=== PATIENT | female | born 1980 | race Two or more races ===

== ENCOUNTER → 2024-02-18 | Outpatient (CLI) | payer BC ==
[~2024-02-18] VITALS: Ht 165.1 cm; Wt 81.6 kg
[2024-02-18] MEDS: REGADENOSON 0.4 MG/5 ML SYRG IV ONE ×2 (12:42→13:14)
--- NOTE | 2024-02-18 17:18 | DVHSR ---
APPROVED REPORT Exam: Nuclear Stress Test BMI: 0 Stress Test Details HR Max Heart Rate (APMHR): 177.677101 bpm Target HR (85% APMHR): 150.623314 bpm BP ECG Stress ECG Conclusion Resting ECG shows normal sinus rhythm. At peak stress level no dynamic EKG changes was noted. Resting images shows heterogenous uptake of radioactive tracer likely due to artifact as stress image s were within normal limits. Stress images shows near homogeneous uptake of radioactive tracer throughout the myocardium without e vidence of myocardial ischemia or infarction. Well-preserved left ventricular systolic function 73%. Impression: Negative stress test for ischemia, low risk study. NM EXAM: Myocardial Perfusion REST/STRESS Imaging Protocol: Rest Tc-99m/Stress Tc-99m 1 day Resting Data Rest SPECT myocardial perfusion imaging was performed in supine position 60 minutes following the int ravenous injection of 11.7 mCi of Tc-99m Sestamibi. Time of rest injection: 1150 Date: 02/18/2024 Time of rest imagin Date: 02/18/2024 Administration Route: IV Administration Site: Right Arm Pharmacologic Stress Pharmacologic stress test was performed by injecting Regadenoson 0.4 mg IV push followed by the intra venous injection of 32.3 mCi of Tc-99m Sestamibi. Time of stress injection: 1308 Date: 02/18/2024 Time of stress imagin Date: 02/18/2024 Administration Route: IV Administration Site: Right Arm Gated Stress SPECT was performed 60 minutes after stress injection. The images were gated to evaluate regional wall motion and calculate left ventricular ejection fracti on. Stress only was performed in the Supine position. Nuclear Conclusion ECG Findings: negative for ischemia Clinical Findings: negative for ischemia Nuclear Findings: negative for ischemia Exercise Capacity: normal Left Ventricular Function: normal Risk Study: low Resting ECG shows normal sinus rhythm. At peak stress level no dynamic EKG changes was noted. Resting images shows heterogenous uptake of radioactive tracer likely due to artifact as stress image s were within normal limits. Stress images shows near homogeneous uptake of radioactive tracer throughout the myocardium without e vidence of myocardial ischemia or infarction. Well-preserved left ventricular systolic function 73%. Impression: Negative stress test for ischemia, low risk study.
== END | disposition home or self-care (01) ==
LOC: XYW 12:02
PROVIDERS: ATTEND Specialist
DX: Z01.810 Encounter for preprocedural cardiovascular examination (principal); R00.2 Palpitations; R07.89 Other chest pain; R07.9 Chest pain, unspecified; R06.00 Dyspnea, unspecified; K21.9 Gastro-esophageal reflux disease without esophagitis; R00.0 Tachycardia, unspecified
CPT/HCPCS: 78452; 93017; A9500; J2785